=== PATIENT | male | born 1980 | race Caucasian/White ===

== ENCOUNTER 2022-03-18 14:38 | Emergency (ER) | payer SELFPAY ==
[~2022-03-18] VITALS: Ht 160 cm; Wt 67.8 kg
[2022-03-18 15:00] VITALS: BP 145/88
[2022-03-18] MEDS ORDERED: VANCOMYCIN 1,000 MG in DEXTROSE 5% 250 ML IV ONE (16:10)
[2022-03-18] MEDS ORDERED: MORPHINE SULFATE 4 MG/ML SYR IVP ONE (16:10)
[2022-03-18] MEDS ORDERED: NACL 0.9% 1,000 ML IV ONE (16:10)
[2022-03-18] MEDS ORDERED: PIPERACILLIN/TAZOBACTAM 3.375 GM in DEXTROSE 5% 50 ML IV ONE (16:10)
[2022-03-18] MEDS ORDERED: VANCOMYCIN 1,000 MG VIAL ONE (16:21)
[2022-03-18] MEDS ORDERED: PIPERACILLIN/TAZOBACTAM 3.375 GM VIAL IV ONE (16:22)
[2022-03-18 16:26] LABS: BASOPHILS % (AUTO) 0.4 % (0.0-2.0); EOSINOPHILS # (AUTO) 0.1 K/uL (0-0.4); EOSINOPHILS % (AUTO) 1.1 % (0.0-4.0); HEMATOCRIT 40.1 % (36-52); HEMOGLOBIN 14.1 g/dL (12.0-18.0); LYMPHOCYTES # (AUTO) 1.2 K/uL (2.0-11.5); LYMPHOCYTES % (AUTO) 21.1 % (20.5-51.1); MEAN CORPUSCULAR HEMOGLOBIN 33 pg (27-31); MEAN CORPUSCULAR HGB CONC 35 g/dL (33-37); MONOCYTES # (AUTO) 0.4 K/uL (0.8-1.0); MONOCYTES % (AUTO) 7.5 % (1.7-9.3); NEUTROPHILS % (AUTO) 69.9 % (42.2-75.2); PLATELET COUNT (AUTO) 234 K/uL (140-450); RED BLOOD CELL COUNT(AUTO) 4.32 MIL/uL (4.20-6.10); RED CELL DISTRIBUTION WIDTH 12.8 % (11.6-13.7); WHITE BLOOD COUNT (AUTO) 5.7 K/uL (4.8-10.8)
[2022-03-18 16:47] LABS: ANION GAP 17.2 (8-16); CARBON DIOXIDE 20.2 mmol/L (21-32); CREATININE 0.8 mg/dL (0.6-1.3); POTASSIUM 3.4 mmol/L (3.5-5.1)
[2022-03-18 19:35] VITALS: BP 125/94
[2022-03-18] MEDS ORDERED: KETOROLAC 30 MG/ML VIAL IVP ONE (23:00)
[2022-03-19] MEDS ORDERED: PIPERACILLIN/TAZOBACTAM 3.375 GM in DEXTROSE 5% 50 ML IV ONE (01:30)
[2022-03-19] MEDS ORDERED: PIPERACILLIN/TAZOBACTAM 3.375 GM VIAL IV ONE (01:36)
[2022-03-19] MEDS ORDERED: ACET-8386 PO (03:54)
[2022-03-19] MEDS ORDERED: SULF-59 PO (03:54)
[2022-03-19] MEDS ORDERED: CEPH-588 PO (03:54)
[2022-03-19] MEDS ORDERED: HYDROcodone/APAP 5/325 MG 1 TAB TAB PO ONE (04:00)
== END 2022-03-19 03:44 | disposition left against medical advice (07) ==
LOC: MED 14:38
DX: E11.65 Type 2 diabetes mellitus with hyperglycemia (principal); Z20.822 Contact with and (suspected) exposure to COVID-19; M65.842 Other synovitis and tenosynovitis, left hand; Z79.4 Long term (current) use of insulin; Z79.899 Other long term (current) drug therapy
CPT/HCPCS: 36415; 73130; 80048; 85025; 85651; 86140; 87040; 87426; 96365; 96366; 96367; 96375; 99285; J1885; J2270; J2543; J3370; Q0092